=== PATIENT | male | born 1945 | race Caucasian/White ===

== ENCOUNTER 2020-09-29 22:41 | Emergency (ER) | payer MEDICARE, BC ==
[2020-09-29] MEDS ORDERED: LORazepam 2 MG/ML SDV IVPUSH ONE (23:11)
[2020-09-29] MEDS ORDERED: Sodium Chloride 0.9% 10 ML Syringe FLUSH PRN (23:12)
[2020-09-29] MEDS ORDERED: Glucagon,Human Recombinant 1 MG Vial IVPUSH ONE (23:12)
--- NOTE | 2020-09-29 23:18 | EDM.PDOC ---
ED HPI GENERAL MEDICAL PROBLEM - General Chief Complaint: ENT Problem Stated Complaint: [facility] Time Seen by Provider: 09/29/20 22:58 Source of Information: Reports: Patient, RN Notes Reviewed - History of Present Illness INITIAL COMMENTS - FREE TEXT/NARRATIVE: 75 yr old male comes in with steak bolus stuck in his esophagus. He was eating steak at the [employer] out at [place] this evening with he had sensation of a piece of steak getting stuck mid chest. Has not been able to eat or drink since that time without vomiting. Has had this happen before but whatever has been stuck has always eventually gone down. Hx of GERD. Chest Pain Score (Numeric/FACES): 7 - Related Data Allergies Allergy/AdvReac Type Severity Reaction Status Date / Time No Known Allergies Allergy Verified 09/29/20 22:47 Home Meds: Home Meds Aspirin [Aspirin EC] 81 mg PO DAILY 09/29/20 [History] Cholecalciferol (Vitamin D3) [Vitamin D3] 1,000 unit PO DAILY 09/29/20 [History] Multivitamin 1 each PO DAILY 09/29/20 [History] Past Medical History HEENT History: Reports: Hard of Hearing Other Gastrointestinal History: hernia Genitourinary History: Reports: Renal Calculus Oncologic (Cancer) History: Reports: Prostate - Past Surgical History GI Surgical History: Reports: Hernia Repair/Other Male Surgical History: Reports: Kidney Stone Extraction, Lithotripsy ([facility]) Musculoskeletal Surgical History: Reports: Knee Replacement Other Musculoskeletal Surgeries/Procedures:: right knee replaced Social & Family History - Tobacco Use Tobacco Use Status *Q: Never Tobacco User Second Hand Smoke Exposure: No - Caffeine Use Caffeine Use: Reports: None - Recreational Drug Use Recreational Drug Use: No ED ROS GENERAL - Review of Systems Review Of Systems: See Below Constitutional: Denies: Fever, Chills, Diaphoresis HEENT: Denies: Throat Pain Respiratory: Denies: Shortness of Breath, Wheezing Cardiovascular: Reports: Chest Pain GI/Abdominal: Reports: Nausea, Vomiting. Denies: Abdominal Pain Musculoskeletal: Reports: Back Pain (mild) Skin: Reports: No Symptoms Neurological: Reports: No Symptoms ED EXAM, GENERAL - Physical Exam Exam: See Below General Appearance: Alert, Mild Distress Throat/Mouth: Normal Inspection Head: Atraumatic. No: Facial Swelling Neck: Supple Respiratory/Chest: No Respiratory Distress, Lungs Clear, Normal Breath Sounds Cardiovascular: Regular Rate, Rhythm GI/Abdominal: Soft, Non-Tender Extremities: Normal Inspection, Normal Range of Motion Neurological: Alert, Oriented, No Motor/Sensory Deficits Skin Exam: Warm, Dry, Normal Color Course - Vital Signs Last Recorded V/S: Last Vital Signs Temp 97.7 F 09/29/20 22:43 Pulse 73 09/29/20 22:43 Resp 18 09/29/20 22:43 BP 130/78 09/29/20 22:43 Pulse Ox 97 09/29/20 22:43 - Orders/Labs/Meds Orders: Active Orders 24 hr Category Date Time Status Peripheral IV Care [RC] . DIRECTED Care 09/29/20 23:12 Active Chest 1V Frontal [CR] Stat Exams 09/29/20 23:17 Taken Sodium Chloride 0.9% [Saline Flush] Med 09/29/20 23:12 Active 10 ml FLUSH ASDIRECTED PRN Peripheral IV Insertion Adult [OM.PC] Stat Oth 09/29/20 23:11 Ordered Medication Orders Sodium Chloride (Sodium Chloride 0.9% 10 Ml Syringe) 10 ml FLUSH ASDIRECTED PRN PRN Reason: Keep Vein Open Last Admin: 09/29/20 23:24 Dose: 10 ml Documented by: ISABEL Labs: Laboratory Tests 09/29/20 09/29/20 Range/Units 23:21 23:26 WBC 9.93 H (4.23-9.07) K/mm3 RBC 4.63 (4.63-6.08) M/mm3 Hgb 14.5 (13.7-17.5) gm/dl Hct 42.4 (40.1-51.0) % MCV 91.6 (79.0-92.2) fl MCH 31.3 (25.7-32.2) pg MCHC 34.2 (32.2-35.5) g/dl RDW Std Deviation 44.4 H (35.1-43.9) fL Plt Count 265 (163-337) K/mm3 MPV 10.1 (9.4-12.3) fl Neut % (Auto) 87.3 H (34.0-67.9) % Lymph % (Auto) 5.9 L (21.8-53.1) % Barron % (Auto) 5.5 (5.3-12.2) % Eos % (Auto) 1.0 (0.8-7.0) Baso % (Auto) 0.2 (0.1-1.2) % Neut # (Auto) 8.66 H (1.78-5.38) K/mm3 Lymph # (Auto) 0.59 L (1.32-3.57) K/mm3 Barron # (Auto) 0.55 (0.30-0.82) K/mm3 Eos # (Auto) 0.10 (0.04-0.54) K/mm3 Baso # (Auto) 0.02 (0.01-0.08) K/mm3 Sodium 147 H (136-145) mEq/L Potassium 3.7 (3.5-5.1) mEq/L Chloride 108 H (98-107) mEq/L Carbon Dioxide 24 (21-32) mEq/L Anion Gap 18.7 H (5-15) BUN 19 H (7-18) mg/dL Creatinine 1.0 (0.7-1.3) mg/dL Est Cr Clr Drug Dosing 61.51 mL/min Estimated GFR (MDRD) > 60 (>60) mL/min BUN/Creatinine Ratio 19.0 H (14-18) Glucose 126 H (70-99) mg/dL Calcium 8.7 (8.5-10.1) mg/dL Total Bilirubin 0.6 (0.2-1.0) mg/dL AST 18 (15-37) U/L ALT 28 (16-63) U/L Alkaline Phosphatase 96 (46-116) U/L Total Protein 6.9 (6.4-8.2) g/dl Albumin 3.8 (3.4-5.0) g/dl Globulin 3.1 gm/dL Albumin/Globulin Ratio 1.2 (1-2) Meds: Medications Generic Name Dose Route Start Last Admin Trade Name Freq PRN Reason Stop Dose Admin Sodium Chloride 10 ml 09/29/20 23:12 09/29/20 23:24 Sodium Chloride 0.9% 10 Ml Syringe FLUSH 10 ml ASDIRECTED PRN Administration Keep Vein Open Discontinued Medications Generic Name Dose Route Start Last Admin Trade Name Freq PRN Reason Stop Dose Admin Glucagon 1 mg 09/29/20 23:12 09/29/20 23:24 Glucagon,Human Recombinant 1 Mg Vial IVPUSH 09/29/20 23:13 1 mg ONETIME ONE Administration Lorazepam 0.5 mg 09/29/20 23:11 09/29/20 23:21 Lorazepam 2 Mg/Ml Sdv IVPUSH 09/29/20 23:12 0.5 mg ONETIME ONE Administration - Re-Assessments/Exams Free Text/Narrative Re-Assessment/Exam: 09/30/20 00:05. Have given ativan 0.5 mg IV, glucagon 1 mg IV. He has been drinking some sprite, he vomited and now is drinking the rest of the sprite with minimal discomfort. Has drank half a glass of water and so far that also feels better and has stayed down. Will watch him a bit longer and make sure he doesn't start vomiting again and than plan to discharge back to his but tour group. Departure - Departure Time of Disposition: 00:30 Disposition: Home, Self-Care 01 Condition: Fair Clinical Impression: Food impaction of esophagus Qualifiers: Encounter type: initial encounter Qualified Code(s): T18.128A - Food in esophagus causing other injury, initial encounter - Discharge Information Referrals: PCP,None [Primary Care Provider] - Forms: ED Department Discharge Additional Instructions: Cut your food into small bites and pieces, chew well so this does not happen again. Clear liquids only until morning, than careful soft diet tomorrow as tolerated. Return to ED as needed. Sepsis Event Note (ED) - Evaluation Sepsis Screening Result: No Definite Risk - Focused Exam Vital Signs: Vital Signs Temp Pulse Resp BP Pulse Ox 09/29/20 22:43 97.7 F 73 18 130/78 97 - My Orders Last 24 Hours: My Active Orders 09/29/20 23:11 Peripheral IV Insertion Adult [OM.PC] Stat 09/29/20 23:12 Peripheral IV Care [RC] . DIRECTED Sodium Chloride 0.9% [Saline Flush] 10 ml FLUSH ASDIRECTED PRN 09/29/20 23:17 Chest 1V Frontal [CR] Stat - Assessment/Plan Last 24 Hours: My Active Orders 09/29/20 23:11 Peripheral IV Insertion Adult [OM.PC] Stat 09/29/20 23:12 Peripheral IV Care [RC] . DIRECTED Sodium Chloride 0.9% [Saline Flush] 10 ml FLUSH ASDIRECTED PRN 09/29/20 23:17 Chest 1V Frontal [CR] Stat
--- NOTE | 2020-09-30 11:22 | CR ---
Chest: Frontal view of the chest was obtained. Comparison: No prior chest imaging is available. Heart size and mediastinum are normal. Lungs are clear with no acute parenchymal change. No acute osseous abnormality is appreciated. Impression: 1. Nothing acute is seen on frontal chest x-ray. Diagnostic code #1
== END 2020-09-30 00:48 | disposition home or self-care (01) ==
LOC: JD.ED 22:41
DX: T18.128A Food in esophagus causing other injury, initial encounter (principal); Z79.82 Long term (current) use of aspirin
CPT/HCPCS: 36415; 71045; 80053; 85025; 96374; 96375; 99284; J1610; J2060; 99283